=== PATIENT | female | born 1960 | race Caucasian/White ===

== ENCOUNTER 2016-07-21 18:00 | Inpatient (IN) | payer OTHER ==
--- NOTE | ~2016-07-21 | PN ---
Unit #: [id number] #: [id number] Patient: JOSEPH SILVER [id number] [facility] [address] [place] [address] [id number] MR#: [id number] NAME: JOSEPH SILVER. ROOM: P183 Age: 55 Sex: F Admission Date: 07/21/2016 : 1960 Attending Physician: Alex Corrales M.D. Admitting Physician: Alex Corrales M.D. Primary Care Physician: Primary Care Physician Nubia CONWAY PROGRESS NOTES DATE 07/23/2016 DISCUSSION The patient is abed resting comfortably today. We are looking at [facility]. Dictated by... Alex Corrales M.D. CB/alex TD: 07/23/2016 17:29 JOB #: [id number] MAN PROGRESS NOTES Page 1 of 1 X Alex Corrales MD X PROGRESS NOTE
--- NOTE | ~2016-07-21 | PA ---
Unit #: [id number] #: [id number] Patient: JOSEPH SILVER [id number] [facility] [address] [place] [address] [id number] MR#: [id number] NAME: JOSEPH SILVER. ROOM: 83 Age: 55 Sex: F Admission Date: 07/21/2016 : 1960 Date of Assessment: 07/22/2016 Attending Physician: Alex Corrales M.D. Admitting Physician: Alex Corrales M.D. Primary Care Physician: Primary Care Physician No PSYCHIATRIC ASSESSMENT IDENTIFYING INFORMATION The patient is a 55-year-old white female admitted to the [facility] with complaints of suicidal ideation and abuse of cocaine. INFORMANT(S) Patient. RELIABILITY Fair. CHIEF COMPLAINT None given. HISTORY OF PRESENT ILLNESS The patient is a 55-year-old white female who was admitted to the [facility] unit with complaints of depressed mood. She had traveled from [place], [place] and was scheduled to begin treatment at [facility] but was found to be on multiple medications that were unsuitable for that facility including Ambien, Vyvanse, Gregory and Klonopin. The patient reports that she last used cocaine approximately 2 days ago. Current stressors include her recent eviction from her apartment in [place], [place]. The patient was reporting positive suicidal ideation at the time of admission and states that she has been admitted on multiple occasions in the [place], [place] area related to symptoms of bipolar disorder. PAST PSYCHIATRIC HISTORY The patient report as above. FAMILY HISTORY Noncontributory. SOCIAL HISTORY The patient is presently homeless. She is scheduled to begin treatment at [facility]. She reports an extensive history of cocaine use. MEDICAL HISTORY Significant for history of chronic back pain, overactive bladder and hypercholesterolemia. MEDICATION HISTORY 1. Mobic. 2. Metformin. 3. Naproxen. Unit #: [id number] #: [id number] Patient: JOSEPH SILVER 4. Ditropan. 5. Zocor. 6. Ultram. 7. Trazodone. 8. Effexor XR. 9. Albuterol. 10. Abilify. 11. Baclofen. 12. Tessalon. 13. Zyrtec. 14. Klonopin. 15. Docusate. 16. Flonase. 17. Mucinex. 18. Gregory. 19. Vyvanse. 20. Ambien. ALLERGIES None. MENTAL STATUS EXAM At this time, reveals the patient to be a disheveled white female appearing older than her stated age of 55 years. She is in no apparent physical distress at time of examination. She is awake, alert, oriented in all spheres. Her mood is dysphoric. Her affect constricted. Speech is generally relevant and coherent. There are no gross deficits in memory or cognition noted. Intelligence is judged to be in the average range based on fund of knowledge. The patient is cooperative throughout the interview. She is currently endorsing positive suicidal ideation. She denies homicidal ideation. She denies any psychotic symptoms. Her judgement and insight appear to be reasonably intact. ASSETS AND LIABILITIES Patient's assets, motivation for change. Liabilities, lack of resources. ADMITTING DIAGNOSES 1. Bipolar disorder, depressed phase. 2. Cocaine use disorder. 3. Diabetes mellitus. 4. Overactive bladder. 5. Chronic pain. 6. Dyslipidemia. 7. COPD. PSYCHIATRIC PLAN/TREATMENT GOALS The patient remains hospitalized for safety and stabilization. We will place her on routine detoxification protocol for opioids and benzodiazepines given the fact that we will need to discontinue Gregory and Klonopin if the patient is to have any hope of being accepted [facility]. The patient will participate in appropriate dobson and milieu activities and suicide precautions are in place. ESTIMATED LENGTH OF STAY Five to seven days. Unit #: [id number] #: [id number] Patient: JOSEPH SILVER Dictated by... Alex Corrales M.D. CB/alex TD: 07/22/2016 22:08 JOB #: [id number] PSYCHIATRIC ASSESSMENT Page 1 of 1 X Alex Corrales MD X PSYCHIATRIC ASSESSMENT
--- NOTE | ~2016-07-21 | PN ---
Unit #: [id number] #: [id number] Patient: JOSEPH SILVER [id number] [facility] [address] [place] [address] [id number] MR#: [id number] NAME: JOSEPH SILVER. ROOM: P183 Age: 55 Sex: F Admission Date: 07/21/2016 : 1960 Attending Physician: Alex Corrales M.D. Admitting Physician: Alex Corrales M.D. Primary Care Physician: Primary Care Physician Nubia GUZMAN NOTES DATE 07/24/2016 DISCUSSION The patient is resting comfortably with no particular complaints. The staff reports no management issues, though reports that her participation within the therapeutic milieu has been poor. Dictated by... Alex Corrales M.D. CB/jacey TD: 07/25/2016 23:00 JOB #: [id number] MAN GUZMAN NOTES Page 1 of 1 X Alex Corrales MD X PROGRESS NOTE
--- NOTE | ~2016-07-21 | DS ---
Unit #: [id number] #: [id number] Patient: JOSEPH SILVER [id number] [facility] [address] [place] [address] [id number] MR#: [id number] NAME: JOSEPH SILVER. ROOM: P183 Age: 55 Sex: F Admission Date: 07/21/2016 : 1960 Discharge Date: Attending Physician: Alex Corrales M.D. Primary Care Physician: Primary Care Physician No DISCHARGE SUMMARY REASON FOR ADMISSION The patient is a 55-year-old white female from [place], [place], admitted after she had been declined [facility] secondary to being on multiple medications. She also has an extensive substance abuse history. HOSPITAL COURSE The patient was admitted to the [facility] unit and placed on suicide precautions. Potentially abusable medications were discontinued, so that the patient could gain access to the [facility]. These included Vyvanse, Klonopin, and Street. The patient's stay in the hospital was an otherwise uneventful one. By 07/25/2016, she was in bright spirits and agreeable with plan for followup to take place the following morning to the [facility]. Discharge was ordered. FINAL DIAGNOSES Cocaine use disorder; opioid use disorder; alcohol use disorder; methamphetamine use disorder; mood disorder, unspecified. DISPOSITION ON DISCHARGE The patient is discharged on the following medications, Mobic 15 mg q.a.m. for degenerative disk disease, Glucophage 500 mg daily before breakfast and 1000 mg before supper for diabetic management, Ditropan XL 10 mg b.i.d. for urinary incontinence, Zocor 20 mg at bedtime for dyslipidemia, trazodone 300 mg at bedtime for depression, Effexor XR 225 mg q.a.m. for depression, Tessalon Perles 200 mg t.i.d. for cough, Proventil HFA 2 puffs q.4 hours p.r.n. shortness of air, Abilify 10 mg daily for mood stabilization, Lioresal 10 mg t.i.d. for muscle relaxation, Claritin 10 mg daily for environmental allergies, Colace 100 mg b.i.d. for constipation, Flonase 2 sprays b.i.d. for environmental allergies, Humibid LA 1200 mg b.i.d. for cough. DISCHARGE INSTRUCTIONS No dietary or physical restrictions were placed upon the patient at the time of discharge. FOLLOWUP Followup will take place through the auspices of community mental health resources. PROGNOSIS The patient's prognosis is considered fair. Unit #: [id number] #: [id number] Patient: JOSEPH SILVER Dictated by... Alex Corrales M.D. CB/raiza TD: 07/26/2016 03:21 JOB #: [id number] DISCHARGE SUMMARY Page 1 of 1 X Alex Corrales MD X DISCHARGE SUMMARY
--- NOTE | ~2016-07-21 | HP ---
Unit #: [id number] #: [id number] Patient: JOSEPH SILVER [id number] [place] [address] [id number] I MR#: [id number] NAME: JOSEPH SILVER. ROOM: P183 Age: 55 Sex: F Admission Date: 07/21/2016 : 1960 Attending Physician: Alex Corrales M.D. Admitting Physician: Alex Corrales M.D. Primary Care Physician: Primary Care Physician No HISTORY AND PHYSICAL HISTORY OF PRESENT ILLNESS Joseph is a 55-year-old female admitted on 07/21/[address] [facility] for detox from crack cocaine. PAST MEDICAL HISTORY Type 2 diabetes, hyperlipidemia, COPD. PAST SURGICAL HISTORY Tonsillectomy and breast augmentation. SOCIAL HISTORY Smokes 1 pack of cigarettes daily. Denies alcohol use. Does report use of crack cocaine. She is currently and living alone. FAMILY HISTORY Noncontributory. REVIEW OF SYSTEMS CONSTITUTIONAL: No fever or chills. HEENT: Denies any sore throat, ear pain or runny nose. CARDIOVASCULAR: Denies chest pain, irregular heart rhythm or palpitations. CHEST: Denies shortness of breath or cough. No hemoptysis. GASTROINTESTINAL: Denies nausea, vomiting, diarrhea or chronic constipation. ENDOCRINE: Denies history of increased thirst or urination. No recent significant weight loss or gain. GENITOURINARY: Denies dysuria, frequency, or hematuria. SKIN: Denies any rashes. HEMATOLOGIC: Denies history of increased bleeding or bruising. MUSCULOSKELETAL: Denies any hot, swollen joints. No generalized muscle pain. NEUROLOGIC: Denies problems with vision or speech. No frequent, severe headaches. No numbness, tingling or weakness in any extremities. Denies loss of bladder or bowel control. CURRENT MEDICATIONS Albuterol, Abilify, baclofen, Tessalon, Zyrtec, Klonopin, Doc-Q-Lace, Flonase, Mucinex, Mobic, metformin, Ditropan, Zocor, trazodone, and Effexor. ALLERGIES No known drug allergies. Unit #: [id number] #: [id number] Patient: ADRIANNE,JOSEPH J PHYSICAL EXAMINATION GENERAL: Alert, oriented, no acute distress. VITAL SIGNS: Blood pressure 147/68, heart rate 70, temperature 97.9. HEIGHT: 5 feet 3. WEIGHT: 159 pounds. SKIN: Warm, dry. No rashes or lesions, track bingham, cuts, etc. HEENT: Normocephalic. TMs not viewed. Oronasal passages clear. Conjunctivae clear. PERRLA. EOM is intact. NECK: No lymphadenopathy or thyromegaly. HEART: Regular rate and rhythm. No murmur, gallop, or rub. LUNGS: Clear to auscultation bilaterally. ABDOMEN: Soft, nontender without palpable masses or hepatosplenomegaly. : Not assessed. EXTREMITIES: No evidence of cyanosis, clubbing, or edema. Moves all extremities independently without obvious deficit. NEUROLOGICAL: Grossly within normal limits. Cranial Nerves: II: Visual darden are intact. III, IV AND : Extraocular movements are intact. Pupils are equal, round and reactive to light. V: Facial sensation is grossly normal. VII: Facial movements and expression are normal. VIII: Auditory acuity grossly intact. IX, X: Uvula is midline. Phonation is normal. XI: Patient shrugs shoulders and turns head normally. XII: Tongue protrudes in the midline. Sensory and Motor Function: Sensory and motor sensation is grossly normal. Motor: moves all extremities well. Coordination: Gait is normal. Deep Tendon Reflexes: Intact. IMPRESSION 1. Psychiatric admission. 2. Type 2 diabetes. 3. Hyperlipidemia. 4. Chronic obstructive pulmonary disease. RECOMMENDATIONS PSYCHIATRIC: Per psychiatrist. MEDICAL: No contraindication to participating in this facility's activities. MEDICAL PROGNOSIS Good. MEDICAL CONDITION Stable. Dictated by... Kaila Calderón TD: 07/23/2016 09:11 JOB #: [id number] Unit #: [id number] #: [id number] Patient: JOSEPH SILVER HISTORY AND PHYSICAL Page 1 of 1 X CIERA PRITCHETT APRN HISTORY AND PHYSICAL
[2016-07-22 10:02] LABS: URINE APPEARANCE CLOUDY; URINE BLOOD NEG (NEG); URINE COLOR YELLOW; URINE GLUCOSE NORM (NORM); URINE KETONE NEG (NEG); URINE LEUKOCYTE ESTERASE NEG (NEG); URINE NITRATE NEG (NEG); URINE PROTEIN NEG (NEG); URINE UROBILINOGEN NORM (NORM)
[2016-07-22 10:08] LABS: URINE BILIRUBIN NEG (NEG)
[2016-07-22 11:08] LABS: AMPHETAMINE POS (NEG); BARBITURATES NEG (NEG); BENZODIAZEPINES NEG (NEG); COCAINE POS (NEG); MARIJUANA NEG (NEG); OPIATES NEG (NEG); TRICYCLIC ANTIDEPRESSANTS NEG (NEG); U METHADONE NEG (NEG)
[2016-07-22 12:34] LABS: BASOPHIL# 0.1 X10e3 (0-0.3); BASOPHIL% 1.1 % (0-2.5); EOSINOPHIL# 0.9 X10e3 (0-0.7); EOSINOPHIL% 14.7 % (0.0-7.0); HEMATOCRIT 40.7 % (35.0-45.0); HEMOGLOBIN 13.2 gm/dL (12.0-16.0); LYMPHOCYTE# 2.1 X10e3 (1.0-3.5); LYMPHOCYTE% 36.7 % (17.0-45.0); MEAN CELL VOLUME 90.7 FL (83-96); MEAN CORPUSCULAR HEMOGLOBIN 29.3 PG (28-34); MEAN CORPUSCULAR HGB CONC 32.4 g/dL (30-36); MEAN PLATELET VOLUME 8.4 FL (6.5-11.5); MONOCYTE# 0.5 X10e3 (0-1.0); MONOCYTE% 8.3 % (3.0-12.0); NEUTROPHIL# 2.3 X10e3 (1.5-7.1); NEUTROPHIL% 39.2 % (40-75); PLATELET COUNT 269 X10e3 (140-420); RED BLOOD COUNT 4.48 X10e (3.90-5.30); RED CELL DISTRIBUTION WIDTH 14.6 % (11.0-15.5); WHITE BLOOD COUNT 5.8 X10e3 (4.0-10.5)
[2016-07-22 12:40] LABS: DIFF IND NO
[2016-07-22 12:58] LABS: ALBUMIN SERUM 3.8 g/dL (3.5-5.0); BILIRUBIN,TOTAL 0.4 mg/dL (0.2-2.0); CALCIUM SERUM 8.8 mg/dL (8.4-10.2); GLOM FILT RATE Estimated 64.3 mL/min (>60); POTASSIUM 4.1 mmol/L (3.5-5.1); PROTEIN TOTAL SERUM 6.5 g/dL (6.0-8.3)
== END 2016-07-26 09:35 | disposition home or self-care (01) | DRG 897 ==
LOC: P1E 23:00
PROVIDERS: Specialist
PROC: HZ2ZZZZ Detoxification Services for Substance Abuse Treatment (ICD-10-PCS; principal; 2016-07-22)
DX: F14.10 Cocaine abuse, uncomplicated (principal); F11.10 Opioid abuse, uncomplicated; F10.10 Alcohol abuse, uncomplicated; E11.9 Type 2 diabetes mellitus without complications; N32.81 Overactive bladder; E78.5 Hyperlipidemia, unspecified; J44.9 Chronic obstructive pulmonary disease, unspecified; G89.29 Other chronic pain; Z79.84 Long term (current) use of oral hypoglycemic drugs; F15.10 Other stimulant abuse, uncomplicated
CPT/HCPCS: 80053; 80307; 81003; 82947; 85025